=== PATIENT | female | born 1950 | race Caucasian/White ===

== ENCOUNTER 2021-01-27 23:33 | Inpatient (IN) | payer MEDICARE, MEDICAID ==
[~2021-01-27] VITALS: Ht 154.9 cm; Wt 50.8 kg
[~2021-01-27 23:33] MED LIST: LOSA25TA26 PO; METF-873 PO
[2021-01-28] VITALS (7 sets, daily range): BP systolic 140–177; BP diastolic 70–89
[2021-01-28] MEDS ORDERED: LABETALOL HCL 20MG/4ML CARPUJECT IV ONE (00:15)
[2021-01-28] MEDS ORDERED: NITROGLYCERIN OINT 1GM/INCH UDPKT TD ONE (00:15)
[2021-01-28] MEDS ORDERED: FUROSEMIDE 40MG/4ML VIAL IV ONE (00:15)
[2021-01-28] MEDS ORDERED: ASPIRIN 81MG TABLET PO ONE (00:15)
[2021-01-28 00:29] LABS: BASOPHILS % 0.7 % (0.0-2.0); EOSINOPHILS % 0.4 % (0.0-5.0); HEMATOCRIT. 27.9 % (36.0-48.0); LYMPHOCYTES % 9.7 % (20.0-50.0); MEAN CORPUSCULAR HEMOGLOBIN 28.9 pg (28.0-32.0); MEAN PLATELET VOLUME 12.3 fl (7.4-10.4); MONOCYTES % 5.1 % (2.0-8.0); NEUTROPHILS % 84.1 % (40.0-76.0); PLATELET 155 x1000/uL (130-400); RED BLOOD CELL COUNT 3.13 mill/uL (4.2-5.4); RED CELL DISTRIBUTION WIDTH 14.2 % (11.6-14.6)
[2021-01-28 00:43] LABS: CHLORIDE 100 mEq/L (98-107)
[2021-01-28] MEDS ORDERED: NITROGLYCERIN 50MG PREMIX 250 ML IV ONE (01:45)
[2021-01-28] MEDS ORDERED: ONDANSETRON HCL 4MG/2ML INJ IV NR (01:45)
[2021-01-28 04:58] LABS: PROTHROMBIN TIME 11.3 sec (9.6-11.0)
[2021-01-28 05:00] LABS: INR 1.1
[2021-01-28] MEDS ORDERED: ONDANSETRON 4MG ODT PO PRN (09:30)
[2021-01-28] MEDS ORDERED: AMLODIPINE 10MG TABLET PO ONE (09:30)
[2021-01-28] MEDS ORDERED: DEXTROSE 50% WATER 50ML SYRINGE IV PRN ×3 (09:30→17:00)
[2021-01-28] MEDS ORDERED: LABETALOL 5MG/ML SYR 20 MG/4 ML SYRINGE IV ONE (09:30)
[2021-01-28] MEDS ORDERED: INSULIN LISPRO 100 UNITS/ML SUBCUT ONE (09:30)
[2021-01-28] MEDS ORDERED: HYDRALAZINE 20MG/ML VIAL IV PRN (09:30)
[2021-01-28 10:32] LABS: HEMOGLOBIN. 7.8 g/dL (12.0-16.0); MEAN CORPUSCULAR HEMOGLOBIN 28.4 pg (28.0-32.0); MEAN CORPUSCULAR VOLUME 88.1 fL (81.0-99.0); MEAN PLATELET VOLUME 12.4 fl (7.4-10.4); PLATELET 116 x1000/uL (130-400); RED BLOOD CELL COUNT 2.73 mill/uL (4.2-5.4)
[2021-01-28 10:40] LABS: INR 1.1; PROTHROMBIN TIME 11.7 sec (9.6-11.0)
[2021-01-28 10:45] LABS: CHLORIDE 101 mEq/L (98-107)
[2021-01-28 10:55] LABS: BETA HYDROXYBUTYRATE 0.2 mMol/L (0.0-0.3)
[2021-01-28] MEDS ORDERED: AMLODIPINE 10MG TABLET PO NR (11:15)
[2021-01-28] MEDS ORDERED: LISINOPRIL 20MG TABLET PO SCH (11:30)
[2021-01-28 12:59] LABS: CLARITY URINE CLEAR (CLEAR); COLOR URINE YELLOW (YELLOW); KETONES URINE NEGATIVE (NEGATIVE); LEUKOCYTE ESTERASE URINE NEGATIVE (NEGATIVE); NITRITE URINE NEGATIVE (NEGATIVE); OCCULT BLOOD URINE TRACE (NEGATIVE); PROTEIN URINE 3+ (NEGATIVE); SPECIFIC GRAVITY URINE 1.014 (1.005-1.030); UROBILINOGEN URINE 0.2 E.U./dL (0.2-1.0)
[2021-01-28 12:59] LABS: PLATELET ESTIMATE SLIGHTLY DECREASED
[2021-01-28] MEDS ORDERED: BLOOD SUGAR DIAGNOSTIC STRIP TEST SCH ×2 (13:00→17:30)
[2021-01-28] MEDS ORDERED: INSULIN LISPRO 100 UNITS/ML SUBCUT SCH ×2 (13:20→18:00)
[2021-01-28] MEDS: CLONIDINE 0.1MG TABLET PO PRN (14:47)
[2021-01-28] MEDS ORDERED: HYDROCODONE/ACETAMINOPHEN 5/325MG TABLET PO PRN (17:00)
[2021-01-28] MEDS ORDERED: ACETAMINOPHEN 325MG TABLET PO PRN (17:00)
[2021-01-28] MEDS ORDERED: IPRATROPIUM/ALBUTEROL 0.5-3(2.5)MG/3ML NEB HHN PRN (17:00)
[2021-01-28] MEDS ORDERED: MAGNESIUM/ALUMINUM HYDROXIDE/SIMETHICONE 30ML UDC PO PRN (17:00)
[2021-01-28] MEDS ORDERED: DOCUSATE SODIUM 100MG CAPSULE PO PRN (17:00)
[2021-01-28] MEDS ORDERED: ONDANSETRON HCL 4MG/2ML INJ IV PRN (17:00)
[2021-01-28] MEDS: FUROSEMIDE 40MG/4ML VIAL IV SCH (17:44)
[2021-01-28] MEDS: BLOOD SUGAR DIAGNOSTIC STRIP TEST SCH ×2 (17:46→20:51)
[2021-01-28] MEDS: INSULIN LISPRO 100 UNITS/ML SUBCUT SCH ×2 (17:50→20:51)
[2021-01-28] MEDS: IPRATROPIUM/ALBUTEROL 0.5-3(2.5)MG/3ML NEB HHN SCH (20:31)
[2021-01-28 21:08] LABS: TOTAL IRON BINDING CAPACITY 155 ug/dL (250-450)
[2021-01-28 21:23] LABS: FOLIC ACID (FOLATE) SERUM 9.2 ng/mL (>5.38)
[2021-01-29] VITALS (12 sets, daily range): BP systolic 133–201; BP diastolic 56–87
[2021-01-29] MEDS: CLONIDINE 0.1MG TABLET PO PRN ×4 (00:34→23:04)
[2021-01-29] MEDS: IPRATROPIUM/ALBUTEROL 0.5-3(2.5)MG/3ML NEB HHN SCH ×4 (02:56→20:39)
[2021-01-29 06:35] LABS: BASOPHILS % 0.3 % (0.0-2.0); HEMOGLOBIN. 7.9 g/dL (12.0-16.0); LYMPHOCYTES % 15.9 % (20.0-50.0); MEAN CORPUSCULAR HEMOGLOBIN 29.1 pg (28.0-32.0); MEAN CORPUSCULAR VOLUME 85.1 fL (81.0-99.0); MEAN PLATELET VOLUME 12.2 fl (7.4-10.4); MONOCYTES % 9.1 % (2.0-8.0); NEUTROPHILS % 71.7 % (40.0-76.0); PLATELET 124 x1000/uL (130-400); RED CELL DISTRIBUTION WIDTH 14.3 % (11.6-14.6)
[2021-01-29 07:08] LABS: T4 FREE 1.16 ng/dL (0.76-1.46)
[2021-01-29 07:20] LABS: PHOSPHORUS 4.2 mg/dL (2.5-4.9)
[2021-01-29 07:26] LABS: CREATINE KINASE MB FRACTION 2.1 ng/mL (0.5-3.6)
[2021-01-29 07:31] LABS: CLARITY URINE CLEAR (CLEAR); COLOR URINE YELLOW (YELLOW); KETONES URINE NEGATIVE (NEGATIVE); LEUKOCYTE ESTERASE URINE NEGATIVE (NEGATIVE); NITRITE URINE NEGATIVE (NEGATIVE); OCCULT BLOOD URINE NEGATIVE (NEGATIVE); PH URINE 5.5 (4.5-8.0); PROTEIN URINE 3+ (NEGATIVE); SPECIFIC GRAVITY URINE 1.012 (1.005-1.030); UROBILINOGEN URINE 0.2 E.U./dL (0.2-1.0)
[2021-01-29 07:53] LABS: *AMPHETAMINES SCREEN URINE NEGATIVE (NEGATIVE); *BARBITURATES SCREEN URINE NEGATIVE (NEGATIVE); *BENZODIAZEPINES SCREEN URINE NEGATIVE (NEGATIVE); *COCAINE SCREEN URINE NEGATIVE (NEGATIVE); METHADONE URINE SCREEN NEGATIVE (NEGATIVE)
[2021-01-29 07:54] LABS: CANNABINOID URINE SCREEN NEGATIVE (NEGATIVE); OPIATES URINE SCREEN NEGATIVE (NEGATIVE); PHENCYCLIDINE URINE SCREEN NEGATIVE (NEGATIVE)
[2021-01-29] MEDS: BLOOD SUGAR DIAGNOSTIC STRIP TEST SCH ×4 (08:00→21:39)
[2021-01-29] MEDS: INSULIN LISPRO 100 UNITS/ML SUBCUT SCH ×4 (08:03→22:19)
[2021-01-29] MEDS: FUROSEMIDE 40MG/4ML VIAL IV SCH (08:05)
[2021-01-29] MEDS: OMEPRAZOLE 20MG CAPSULE EXTENDED RELEASE PO SCH (08:05)
[2021-01-29] MEDS ORDERED: LOSARTAN POTASSIUM 25 MG TABLET PO SCH (09:00)
[2021-01-29 09:04] LABS: BG CARBOXYHEMOGLOBIN 0.2 % (0.5-1.5); BG DEOXYHEMOGLOBIN 1.4 % (0.0-5.0); BG FRACTION INSPIRED OXYGEN 32; BG METHEMOGLOBIN 0.6 % (0.0-1.5); BG OXYGEN SATURATION 98.6 % (92.0-98.5); BG OXYHEMOGLOBIN 97.8 % (94.0-97.0); BG PCO2 33.7 mmHg (35.0-45.0); BG PH 7.432 (7.350-7.450); BG PO2 132.3 mmHg (75.0-100.0); BG SAMPLE SITE RIGHT RADIAL; BG TOTAL HEMOGLOBIN 7.7 g/dL (12.0-18.0); BG VENT MODE NASAL CANNULA
[2021-01-29 11:21] LABS: T4 FREE 1.14 ng/dL (0.76-1.46)
[2021-01-29 18:28] LABS: CREATINE KINASE MB FRACTION 2.1 ng/mL (0.5-3.6)
[2021-01-29] MEDS: HYDRALAZINE 20MG/ML VIAL IV PRN (18:34)
[2021-01-29] MEDS ORDERED: DEXTROSE 50% WATER 50ML SYRINGE IV PRN (18:45)
[2021-01-30] VITALS (12 sets, daily range): BP systolic 142–174; BP diastolic 60–79
[2021-01-30] MEDS: IPRATROPIUM/ALBUTEROL 0.5-3(2.5)MG/3ML NEB HHN SCH ×4 (04:26→20:19)
[2021-01-30] MEDS: HYDRALAZINE 20MG/ML VIAL IV PRN ×2 (05:09→18:15)
[2021-01-30] MEDS: BLOOD SUGAR DIAGNOSTIC STRIP TEST SCH ×4 (08:20→21:00)
[2021-01-30] MEDS: OMEPRAZOLE 20MG CAPSULE EXTENDED RELEASE PO SCH (08:21)
[2021-01-30] MEDS: FERROUS SULFATE 325MG TABLET PO SCH ×3 (08:21→17:46)
[2021-01-30] MEDS: INSULIN LISPRO 100 UNITS/ML SUBCUT SCH ×4 (08:22→22:01)
[2021-01-30] MEDS: CLONIDINE 0.1MG TABLET PO PRN (08:35)
[2021-01-30 09:05] LABS: BASOPHILS % 0.6 % (0.0-2.0); EOSINOPHILS % 6.1 % (0.0-5.0); HEMATOCRIT. 25.4 % (36.0-48.0); HEMOGLOBIN. 8.3 g/dL (12.0-16.0); LYMPHOCYTES % 26.8 % (20.0-50.0); MEAN CORPUSCULAR HEMOGLOBIN 28.8 pg (28.0-32.0); MEAN CORPUSCULAR VOLUME 88.2 fL (81.0-99.0); MEAN PLATELET VOLUME 12.3 fl (7.4-10.4); MONOCYTES % 9.5 % (2.0-8.0); PLATELET 147 x1000/uL (130-400); RED BLOOD CELL COUNT 2.88 mill/uL (4.2-5.4)
[2021-01-30 09:06] LABS: PHOSPHORUS 5.1 mg/dL (2.5-4.9)
[2021-01-30 09:13] LABS: CREATINE KINASE MB FRACTION 1.5 ng/mL (0.5-3.6)
[2021-01-30] MEDS: INSULIN GLARGINE UD 100 UNITS/ML SYR SUBCUT SCH ×2 (09:24→09:34)
[2021-01-31] VITALS (12 sets, daily range): BP systolic 128–178; BP diastolic 51–76
[2021-01-31] MEDS: IPRATROPIUM/ALBUTEROL 0.5-3(2.5)MG/3ML NEB HHN SCH ×2 (02:58→20:31)
[2021-01-31] MEDS: HYDRALAZINE 20MG/ML VIAL IV PRN ×3 (03:44→15:31)
[2021-01-31] MEDS: BLOOD SUGAR DIAGNOSTIC STRIP TEST SCH ×4 (07:30→20:57)
[2021-01-31] MEDS: FERROUS SULFATE 325MG TABLET PO SCH ×3 (08:55→17:15)
[2021-01-31] MEDS: OMEPRAZOLE 20MG CAPSULE EXTENDED RELEASE PO SCH (08:55)
[2021-01-31] MEDS: INSULIN LISPRO 100 UNITS/ML SUBCUT SCH ×4 (08:56→21:00)
[2021-01-31 09:10] LABS: BASOPHILS % 0.8 % (0.0-2.0); EOSINOPHILS % 5.5 % (0.0-5.0); HEMATOCRIT. 23.6 % (36.0-48.0); HEMOGLOBIN. 7.7 g/dL (12.0-16.0); MEAN CORPUSCULAR HEMOGLOBIN 28.7 pg (28.0-32.0); MEAN CORPUSCULAR VOLUME 87.5 fL (81.0-99.0); MEAN PLATELET VOLUME 11.8 fl (7.4-10.4); MONOCYTES % 11.1 % (2.0-8.0); NEUTROPHILS % 62.6 % (40.0-76.0); PLATELET 160 x1000/uL (130-400); RED CELL DISTRIBUTION WIDTH 14.5 % (11.6-14.6)
[2021-01-31] MEDS ORDERED: INSULIN GLARGINE UD 100 UNITS/ML SYR SUBCUT SCH (10:00)
[2021-01-31] MEDS: CLONIDINE 0.1MG TABLET PO PRN (12:04)
[2021-01-31] MEDS ORDERED: NALOXONE HCL 0.4MG/ML VIAL IV PRN (16:15)
[2021-01-31] MEDS: HYDRALAZINE HCL 50MG TABLET PO SCH ×2 (17:14→20:59)
[2021-01-31] MEDS: AMLODIPINE 10MG TABLET PO SCH (17:15)
[2021-02-01] VITALS (8 sets, daily range): BP systolic 134–168; BP diastolic 60–72
[2021-02-01] MEDS: IPRATROPIUM/ALBUTEROL 0.5-3(2.5)MG/3ML NEB HHN SCH ×2 (02:21→09:54)
[2021-02-01] MEDS: HYDRALAZINE HCL 50MG TABLET PO SCH ×2 (06:03→13:27)
[2021-02-01] MEDS: BLOOD SUGAR DIAGNOSTIC STRIP TEST SCH ×2 (08:26→12:06)
[2021-02-01] MEDS: OMEPRAZOLE 20MG CAPSULE EXTENDED RELEASE PO SCH (08:26)
[2021-02-01] MEDS: AMLODIPINE 10MG TABLET PO SCH (08:37)
[2021-02-01] MEDS: FERROUS SULFATE 325MG TABLET PO SCH ×2 (08:37→13:27)
[2021-02-01] MEDS: INSULIN LISPRO 100 UNITS/ML SUBCUT SCH ×2 (08:38→13:28)
[2021-02-01] MEDS ORDERED: SODIUM CHLORIDE 0.9% 1,000 ML IV SCH (09:15)
[2021-02-01] MEDS ORDERED: INSULIN GLARGINE UD 100 UNITS/ML SYR SUBCUT SCH (10:00)
[2021-02-01] MEDS ORDERED: FERR-63 PO (10:10)
[2021-02-01] MEDS ORDERED: AMLO10TA80 PO (10:10)
[2021-02-01] MEDS ORDERED: HYDR-4135 PO (10:10)
[2021-02-01 10:25] LABS: BASOPHILS % 0.5 % (0.0-2.0); EOSINOPHILS % 4.6 % (0.0-5.0); HEMATOCRIT. 22.9 % (36.0-48.0); HEMOGLOBIN. 7.6 g/dL (12.0-16.0); LYMPHOCYTES % 23.3 % (20.0-50.0); MEAN CORPUSCULAR VOLUME 87.5 fL (81.0-99.0); MEAN PLATELET VOLUME 11.9 fl (7.4-10.4); MONOCYTES % 10.5 % (2.0-8.0); NEUTROPHILS % 61.1 % (40.0-76.0); PLATELET 165 x1000/uL (130-400); RED BLOOD CELL COUNT 2.61 mill/uL (4.2-5.4); RED CELL DISTRIBUTION WIDTH 14.6 % (11.6-14.6)
== END 2021-02-01 18:34 | disposition home or self-care (01) | DRG 194 ==
LOC: ER 23:33 → 5EST 01-28 02:08 → EDBEDREQSVC 01-28 10:12 → ENRESERV 01-28 12:41
PROVIDERS: ADMIT Internal Medicine; ATTEND Internal Medicine
PROC: 5A09357 Assistance with Respiratory Ventilation, Less than 24 Consecutive Hours, Continuous Positive Airway Pressure (ICD-10-PCS; principal; 2021-01-28)
DX: I13.0 Hypertensive heart and chronic kidney disease with heart failure and stage 1 through stage 4 chronic kidney disease, or unspecified chronic kidney disease (principal); J96.21 Acute and chronic respiratory failure with hypoxia; E11.10 Type 2 diabetes mellitus with ketoacidosis without coma; D69.6 Thrombocytopenia, unspecified; N17.9 Acute kidney failure, unspecified; I27.20 Pulmonary hypertension, unspecified; E87.1 Hypo-osmolality and hyponatremia; I50.33 Acute on chronic diastolic (congestive) heart failure; E11.22 Type 2 diabetes mellitus with diabetic chronic kidney disease; Z20.822 Contact with and (suspected) exposure to COVID-19; D64.9 Anemia, unspecified; E11.65 Type 2 diabetes mellitus with hyperglycemia; I16.0 Hypertensive urgency; E78.00 Pure hypercholesterolemia, unspecified; N18.9 Chronic kidney disease, unspecified; E78.5 Hyperlipidemia, unspecified; Z88.0 Allergy status to penicillin; Z79.84 Long term (current) use of oral hypoglycemic drugs; Z79.899 Other long term (current) drug therapy
CPT/HCPCS: 36415; 36600; 71045; 76770; 78580; 80048; 80053; 80061; 80305; 81003; 82010; 82375; 82550; 82553; 82570; 82575; 82607; 82728; 82746; 82805; 82962; 83036; 83540; 83550; 83735; 83880; 84100; 84145; 84156; 84439; 84443; 84484; 85018; 85025; 85379; 87426; 93005; 93306; 93970; 94640; 94660; 97116; 97162; 97166; 99285; J0360; J1815; J1940; J2405; J3490; J7030; Q0162; U0003; U0005